=== PATIENT | male | born 1955 | race Caucasian/White ===

== ENCOUNTER 2022-04-11 10:56 | Emergency (ER) | payer SELFPAY ==
--- NOTE | 2022-04-11 11:06 | XR_ITS ---
FINAL REPORT CLINICAL HISTORY: injury, pt states that his 1st digit got hit by a crowbar today at work. FINDINGS: LEFT HAND 3 views of the left hand were obtained. There is no acute fracture or dislocation. 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 There is mild degenerative change elsewhere. Visualized joint spaces are normally aligned. Soft tissues are unremarkable. IMPRESSION: No acute bony abnormality. Reviewed, Interpreted and Dictated by Mingo Madsen III, MD Transcribed by Maggie Villegas Authenticated and [facility]
[2022-04-11 11:15] VITALS: BP 121/68; PULSE 66; RESP 16; TEMP 36.5; O2SAT 98; BMI 19.5
--- NOTE | 2022-04-11 11:53 | HMH.EDUTC ---
[facility] [place] Clinical Impression: Laceration Disposition: Home, Self-Care Condition on Discharge: Good Instructions: Laceration Repair, DI for Laceration Repair, DI for Laceration Repair -- Simple Additional Instructions: Suture instructions: You have required stitches today. Please read the following instructions so you know how to care for them: 1. Keep wound area dry for the first 24 hours. 2 May clean gently with mild soap and water, after 48 hours to prevent crusting over suture knots. 3. You may shower if your provider gives permission but do not take a bath until the skin is healed.. 4. Never leave a wet dressing or Band-Aid on your stitches as this allows bacteria to reach the area and may cause infection. Band-aids can cause the wound to sweat and not recommended to wear for long periods of time Watch for signs of infection: Increasing redness, tenderness or warmth around the suture site Unusual swelling around the site Appearance of pus around each suture or any red streaks Fever If you develop any of the above signs or symptoms of infection, Follow up with Family Physician immediately 5. Suture removal in _10-12___days 6. Return to [facility] or follow up with family doctor for removal. This can be done by any medical provider during regular hours on Friday through Friday, by appointment. Prescriptions: Amoxicillin/Potassium Clav [Amox-Clav 875-125 mg Tablet] 1 tab PO BID #14 tab Prescription Printed Referrals: Percy Justin [Primary Care Provider] - As needed Time of Disposition: 12:00 Medical Decision Making - Amandeep Inquiry Pt receiving controlled substance: No Amandeep was queried for this patient: No Vital Signs: 04/11/22 11:15 Temperature 97.7 F Temperature Source Oral Pulse Rate [Right Brachial] 66 Respiratory Rate 16 Blood Pressure [Right Arm] 121/68 Blood Pressure Mean [Right Arm] 85 Blood Pressure Source [Right Arm] Automatic Cuff Blood Pressure Position [Right Arm] Sitting 02 Sat by Pulse Oximetry 98 Oxygen Delivery Method Room Air Orders (Tests/Meds): ED MEDICATIONS Discontinued Medications Generic Name Dose Route Start Last Admin Trade Name Freq PRN Reason Stop Dose Admin Tetanus/Reduced Diphtheria/Acell Pertussis 0.5 ml 04/11/22 11:34 04/11/22 11:38 Tet/Diphth/Pert-Adult 0.5ml Syringe IM 04/11/22 11:35 0.5 ml .ONCE ONE Administration ORDERS Category Date Time Status XR hand LT min 3V Stat Exams 04/11/22 11:06 Taken - Radiology Data #1 Image(s): Hand Image Reviewed: Yes I reviewed the patient's radiology image Preliminary Findings: No Fracture Seen [facility] [place] HPI - General Stated complaint: left finger laceration Time Seen by Provider: 04/11/22 11:20 Mode of Arrival: Ambulatory Source of Information: Patient Limitations: No Limitations Description of Symptoms (Recalled from Triage Doc. by RN): PATIENT C/O LACERATION TO TIP OF LEFT INDEX FINGER TODAY HEENT Symptoms (Recalled from RN notes): No Resp Symptoms (Recalled from RN notes): No Skin Symptoms (Recalled from RN notes): Yes MS Symptoms (Recalled from RN notes): No Functional Status (Recalled from RN notes): WNL - History of Present Illness Provider Complaint: Patient states that he was at work and a pry bar slipped and cut him on the tip of his left index finger States that he noticed it looked like he needed to have stitches so he came in - Related Data Previous Rx's Medication Instructions Recorded Amoxicillin/Potassium Clav 1 tab PO BID #14 tab 04/11/22 [Amox-Clav 875-125 mg Tablet] Allergies Allergy/AdvReac Type Severity Reaction Status Date / Time No Known Allergies Allergy Verified 04/11/22 11:34 - Worker's Comp Is this a Worker's Comp case?: No [facility] History - Hepatitis A Screen Attestation statement:: This patient has been screened for Hepatitis A risk factors. I have reviewed the patient's past medical history: Yes ROS Obtained: Yes All sy
[2022-04-11 12:01] VITALS: BP 121/68; PULSE 66; RESP 16; TEMP 36.5; O2SAT 98
== END 2022-04-11 12:05 | disposition home or self-care (01) ==
PROVIDERS: Emergency Provider Nurse Practitioner; PCP Pediatrics
DX: W29.8XXA Contact with other powered hand tools and household machinery, initial encounter (principal); Z23 Encounter for immunization; S61.211A Laceration without foreign body of left index finger without damage to nail, initial encounter
CPT/HCPCS: 12001; 73130; 90471; 90715; 99213; G0463